=== PATIENT | female | born 1985 | race Caucasian/White ===

== ENCOUNTER 2023-05-14 09:18 | Emergency (ER) | payer OTHER, SELFPAY ==
[2023-05-14 09:30] VITALS: BP 172/92; PULSE 118; RESP 20; TEMP 36.6; O2SAT 100
--- NOTE | 2023-05-14 10:18 | ED.GENADULT ---
HPI - General Adult General Chief complaint: Back Pain/Injury Stated complaint: back pain Source: patient Mode of arrival: ambulatory Limitations: no limitations History of Present Illness HPI narrative: Patient presents for evaluation of low back pain for the last week. She cannot identify any precipitating cause or injury. She woke from sleep with her symptoms. She had similar symptoms about a year ago went to [facility] where she had an x-ray of her lumbar spine that showed degenerative disc disease. She states that she was given an unknown medication and her symptoms resolved. She has been taking tylenol and applying ice hot without considerable improvement in her symptoms. She reports allergy to ibuprofen. She states the pain is constant, 4/10 in severity when flexed at the hips but 10/10 severity when ambulating. Pain radiates into right buttock and posterior aspect of right leg. She denies saddle anesthesia, bladder/bowel incontinence. No urinary symptoms. Related Data Allergies Allergy/AdvReac Type Severity Reaction Status Date / Time ibuprofen AdvReac Unknown Other Verified 05/14/23 09:58 Review of Systems Review of Systems: CONSTITUTIONAL: Denies fever, chills, or sweats. EYES: Denies visual changes, redness, or discharge. ENT: Denies rhinorrhea, congestion, sore throat, or otalgia. CARDIOVASCULAR: Denies chest pain, palpitations, or edema. RESPIRATORY: Denies cough or dyspnea. GASTROINTESTINAL: Denies abdominal pain, nausea, vomiting, or diarrhea. GENITOURINARY: Denies dysuria or hematuria. SKIN: Denies rash or itching. MUSCULOSKELETAL: Reports pain in the right lower back which radiates into the right buttock and right leg NEUROLOGIC: Denies headache, numbness, dizziness, or weakness. PSYCHIATRIC: Denies anxiety or depression. FOR[facility]LY [facility] Past Medical History Medical History No pertinent past medical history Surgical History Surgical History History of History of cholecystectomy History of tubal ligation Family History Family History (Updated 05/14/23 @ 10:25 by ROSETTE Mendoza, PRINCESS) Mother Family history non-contributory Social History Social History Living arrangements: with family Gender identity (if verbalized by the patient): Female Sexual Orientation (if Verbalized by the Patient): Straight or Heterosexual Spiritual care concerns: No Exam Narrative: GENERAL: Well-appearing, well-nourished, and in no acute distress. On my initial exam she is standing and leaning over exam table to assist in pain reduction HEAD: Normocephalic, atraumatic. EYES: PERRLA and EOMI. ENT: Nares clear, no rhinorrhea or epistaxis. Mucous membranes moist. Oropharynx without tonsillar hypertrophy exudate or other lesions. Bilateral TMs pearly fritz nonbulging NECK: Supple. No adenopathy or masses. No carotid bruits or JVD CHEST: Clear to auscultation. No respiratory distress. No wheezes rales or rhonchi HEART: Regular rate and rhythm. No murmur heard. Normal peripheral pulses. ABDOMEN: Soft, nontender, nondistended, normal active bowel sounds. BACK: No tenderness in the midline or paraspinous muscles of the lumbar spine. There is tenderness over the right SI joint EXTREMITIES: Normal range of motion. No edema. SKIN: Warm, dry, no rash. NEURO: No focal deficits. Alert and oriented x3. PSYCH: Normal mood and affect. Course Course Emergency Course: This is a 37-year-old female who presented for evaluation of low back pain. This is a similar presentation to her sign [facility] visit approximately 1 year ago where she was told she had DDD on lumbar spinal film. No new injury warranting repeat imaging. She cannot take NSAIDs so will discharge with Medrol Dosepak and Flexeril. Follow up with pr
== END 2023-05-14 10:23 | disposition home or self-care (01) ==
PROVIDERS: Emergency Provider Nurse Practitioner; PCP Physician Assistant
DX: M54.16 Radiculopathy, lumbar region (principal); M51.36 Other intervertebral disc degeneration, lumbar region
CPT/HCPCS: 99213; G0463